=== PATIENT | female | born 1980 ===

== ENCOUNTER 2018-07-17 10:23 | Outpatient (CLI) | payer OTHER | END 2018-07-17 11:13 | disposition home or self-care (01) | LOC: SONOGRAMA 10:23 | DX: E04.1 Nontoxic single thyroid nodule (principal) ==

== ENCOUNTER 2019-03-06 07:00 | Inpatient (IN) | payer OTHER ==
[~2019-03-06] VITALS: Ht 162.6 cm; Wt 70.8 kg
[~2019-03-06 07:00] MED LIST: SYNTHROID175 MCG PO
[2019-03-07] MEDS ORDERED: ROCALTROL0.25 MCG PO (08:26)
[2019-03-07] MEDS ORDERED: PERCOCET 5-3251 EACH PO (08:26)
[2019-03-07] MEDS ORDERED: SYNTHROID100 MCG PO (08:26)
== END 2019-03-07 11:09 | disposition home or self-care (01) | DRG 627 ==
LOC: CIR.AMB 07:00 → EDSTATUS 11:00 → O/R 11:00 → CIR.AMB 11:00 → SURG 14:49 → O/R 14:49 → SURG 15:19
PROVIDERS: ADMIT Surgery
PROC: 0GTK0ZZ Resection of Thyroid Gland, Open Approach (ICD-10-PCS; principal; 2019-03-06 09:00)
DX: C73 Malignant neoplasm of thyroid gland (principal); E03.8 Other specified hypothyroidism

== ENCOUNTER 2019-04-25 13:55 | Emergency (ER) | payer OTHER ==
[~2019-04-25] VITALS: Ht 165.1 cm; Wt 72.6 kg
[~2019-04-25 13:55] MED LIST changes: +PERCOCET 5-3251 EACH PO; +ROCALTROL0.25 MCG PO; +SYNTHROID100 MCG PO
[2019-04-25] MEDS ORDERED: CALCIUM500 M2 (14:17)
[2019-04-25] MEDS ORDERED: TUSNEL LIQUID178 ML PO (19:54)
[2019-04-25] MEDS ORDERED: CLARITIN10 MG PO (19:54)
[2019-04-25] MEDS ORDERED: SINGULAIR 10MG10 MG PO (19:54)
[2019-04-25] MEDS ORDERED: IPRAT-ALBUT 0.5-3 ML IH (19:54)
== END 2019-04-25 20:05 | disposition home or self-care (01) ==
LOC: ER 13:55
DX: B34.9 Viral infection, unspecified (principal)